=== PATIENT | male | born 1950 | race Caucasian/White ===

== ENCOUNTER 2019-07-13 11:06 | Emergency (ER) | payer MEDICARE, SELFPAY ==
[2019-07-13] MEDS: SODIUM CHLORIDE 0.9% IV 1,000 ML 999 ML (11:27)
[2019-07-13] MEDS: ONDANSETRON INJ 4 MG/2 ML VIAL (11:27)
[2019-07-13 11:28] VITALS: BP 157/95; PULSE 61; RESP 22; TEMP 36.6; O2SAT 100
--- NOTE | 2019-07-13 11:52 | ED.NAVMDI ---
HPI - Nausea/Vomiting/Diarrhea General Chief complaint: Nausea/Vomiting/Diarrhea Stated complaint: vomiting Source: patient Mode of arrival: ambulatory Limitations: no limitations History of Present Illness HPI Narrative: This 69-year-old male awoke this morning at 4:00 a.m. with left lower quadrant pain rated 7 to 8/10, constant. He had 2 small loose but formed bowel movements without improvement. No blood. At 6:00 a.m. he had several vomiting episodes which were associated with chills. Since then he has had nausea and multiple episodes of dry emesis. No fever or subsequent chills. For years he has had a daily routine of waking up about 4:00 a.m. with the similar left lower quadrant pain. After has a cup of coffee and a large bowel movement his symptoms always completely go away. He has a gx if frequent episodes of nausea and vomiting attributed to pancreatitis. Symptoms resolved after his cholecystectomy 12 years ago. He states he had a small sip of alcohol last p.m. He rarely drinks. He denies fevers chills chest pain cough shortness of breath dysuria. Related Data Home Medications Medication Instructions Recorded Confirmed finasteride 1 mg PO DAILY 07/13/19 07/13/19 verapamil 240 mg PO HS 07/13/19 07/13/19 Allergies Allergy/AdvReac Type Severity Reaction Status Date / Time No Known Allergies Allergy Unknown Verified 07/17/14 12:26 [facility] Past Medical History Medical History (Updated 07/13/19 @ 12:55 by Geoff Rosales MD) BPH (benign prostatic hyperplasia) COPD (chronic obstructive pulmonary disease) Hypertension Pancreatitis Rhinitis, chronic Surgical History Surgical History (Updated 07/13/19 @ 12:55 by Geoff Rosales MD) History of appendectomy S/P cholecystectomy Family History Family History (Updated 07/02/14 @ 07:54 by DOCTOR UNKNOWN) Mother Cerebrovascular accident Father Family history of lung cancer Other Diabetes mellitus Family history of cardiovascular disease Hypertension Social History Social History Smoking status: Former smoker Smoking end date: 03/26/04 Alcohol intake: current Exam Narrative: Exam Narrative: Laying on left side, periodic dry heaves. Skin is warm and dry. Const: General: alert Orientation/consciousness: patient oriented x3 HENMT: Mouth: Yes moist mucous membranes Neck: Neck: no lymphadenopathy Resp: Auscultation: clear to auscultation bilaterally Cardio: Rate: regular rate Rhythm: regular rhythm GI: GI Palp: Yes Soft to palpation, Yes Tenderness to palpation present (GI) (Minor tenderness LUQ ) and No Guarding due to palpation present (GI) Percussion: Yes other (Surprisingly, no increase in pain with deep palpation LLQ.) Auscultation: Hypoactive bowel sounds present : General: Yes no CVA tenderness Skin: General skin exam: normal color Rashes: no rashes Extrem: General: normal to inspection Course Vital Signs Vital signs: Vital Signs Temperature 36.6 C 07/13/19 11:28 Pulse Rate 61 07/13/19 11:28 Respiratory Rate 22 H 07/13/19 11:28 Blood Pressure 157/95 H 07/13/19 11:28 Pulse Oximetry 100 07/13/19 11:28 Temperature 36.6 C 07/13/19 11:28 Pulse Rate 61 07/13/19 11:28 Respiratory Rate 22 H 07/13/19 11:28 Blood Pressure 157/95 H 07/13/19 11:28 Pulse Oximetry 100 07/13/19 11:28 MDM - Nausea/Vomiting/Diarrhea Differential Diagnosis Differential diagnosis: Likely food poisoning, gastroenteritis and other (diverticulitis, pancreatitis, ) Lab Data Attestation: I reviewed the patient's lab results. Result diagrams: 07/13/19 12:21 07/13/19 12:21 Labs: Lab Results 07/13/19 07/13/19 07/13/19 Range/Units 12:21 12:21 12:21 WBC Pending RBC Pending Hgb Pending Hct Pending MCV Pending MCH Pending MCHC Pending RDW Pending Plt Count Pending MPV Pending Immature Gran % (Auto) Pending
[2019-07-13] MEDS: KETOROLAC 30 MG/ML VIAL (*BKC) IV PUSH (11:54)
[2019-07-13] MEDS: PROMETHAZINE HCL 25 MG/ML AMPUL IM (11:55)
[2019-07-13 12:30] LABS: Hematocrit 44.5 % (37.0-46.0); Hemoglobin 15.1 g/dL (12.4-15.3); Mean Corpuscular HGB Conc 33.9 g/dL (32.0-36.0); Mean Corpuscular Hemoglobin 30.3 pg (27.0-31.0); Mean Corpuscular Volume 89.4 fL (78.0-102.0); Mean Platelet Volume 11.9 fl (8.7-11.0); Platelet Count Result 151 K/mm3 (150-420); Red Blood Count 4.98 M/mm3 (4.70-6.10)
[2019-07-13 12:45] LABS: Alanine Aminotransferase 9 U/L (16-63); Albumin Level 3.7 g/dL (3.4-5.0); Alkaline Phosphatase 57 U/L (46-116); Anion Gap 15.2 mmol/L (7-16); Aspartate Amino Transferase 20 U/L (15-37); Bilirubin,Total 0.7 mg/dL (0.00-1.00); Blood Urea Nitrogen 20 mg/dL (7-18); Calcium 8.4 mg/dL (8.5-10.1); Carbon Dioxide 25 mmol/L (21-32); Chloride 108 mmol/L (98-108); Estimated Glomerular Filt Rate > 60; Glucose 105 mg/dL (70-99); Lipase 108 U/L (73-393); Osmolality Calculated 300 mOsm/kg (285-295); Potassium 4.2 mmol/L (3.5-5.1); Sodium 144 mmol/L (136-145); Total Protein 6.5 g/dL (6.4-8.2)
[2019-07-13 12:49] LABS: Band Neutrophils Percent 0 % (0-6); Lymphocytes Percent Manual 9 % (18-44); Monocytes Percent Manual 5 % (3-9); Neutrophils Percent Manual 85 % (46-73); Total Cells Counted 100
[2019-07-13 12:50] LABS: Basophils Percent Manual 1 % (0-1); CRP < 0.2 mg/dL (0.0-0.9); Eosinophils Percent Manual 0 % (1-6); Platelet Estimate Adequate (Adequate)
[2019-07-13 13:03] LABS: Add Urine Microscopic? YES; Appearance Urine Clear (Clear); Bilirubin Urine Negative (Negative); Blood Urine Negative (Negative); Color Urine Yellow (Yellow); Glucose Urine UA Negative (Negative); Ketones Urine 1+ (Negative); Leukocyte Esterase Ur Negative (Negative); Nitrate Urine Negative (Negative); Protein Urine Negative (Negative); Urobilinogen Urine 0.2 mg/dL (0.2-1.0); pH Urine 7.5 (5.0-8.0)
[2019-07-13 13:07] LABS: RBC Urine None seen /hpf (0-2); Squamous Epithelial Cell Urine Rare /hpf (Few); WBC Urine None seen /hpf (0-3)
[2019-07-13 13:08] LABS: Bacteria Urine None seen /hpf
--- NOTE | 2019-07-13 13:20 | ECG_ITS ---
Measurements Intervals [place] Rate: 73 P: 65 LA: 174 QRS: 73 QRSD: 97 T: 48 QT: 392 QTc: 433 Interpretive Statements SINUS RHYTHM WITH SINUS ARRHYTHMIA DELAYED PRECORDIAL R/S TRANSITION BORDERLINE ECG Electronically Signed On 07-13-2019 15:15:10 CDT by Alexi Borjas D.O.
[2019-07-13] MEDS: ONDANSETRON INJ 4 MG/2 ML VIAL IV PUSH (13:26)
[2019-07-13] MEDS: SODIUM CHLORIDE 0.9% IV 1,000 ML 999 ML IV CONT (13:27)
[2019-07-13 13:40] LABS: Troponin I < 0.02 ng/mL (0.00-0.056)
[2019-07-13 14:34] VITALS: BP 160/86
== END 2019-07-13 14:37 | disposition home or self-care (01) ==
PROVIDERS: Emergency Provider Family Medicine; PCP Internal Medicine
DX: R11.2 Nausea with vomiting, unspecified (principal); R10.32 Left lower quadrant pain
CPT/HCPCS: 36415; 80053; 81001; 83690; 84484; 85025; 86140; 93005; 96361; 96372; 96374; 96375; 96376; 99283; 99284; J1885; J2405; J2550; J7030

== ENCOUNTER 2019-10-20 14:31 | Observation (INO) | payer MEDICARE, SELFPAY ==
--- NOTE | ~2019-10-20 | CT_ITS ---
EXAMINATION: CT abdomen pelvis w con INDICATION: Left lower quadrant pain TECHNIQUE: Computed tomographic images of the abdomen and pelvis were obtained after the administrati on of 100 cc of Omnipaque 350 intravenous contrast. The dose-length product (DLP) was 641.11 mGy-cm. Automated exposure control and iterative reconstruction technique were employed. COMPARISON: 07/25/2014 FINDINGS: Minimal dependent atelectasis is present in the lung bases. The heart size is normal. There is a small sliding hiatal hernia. The gallbladder is surgically absent. There is a 7 mm cyst of the left hepatic lobe. The spleen, pancreas, and adrenal glands are normal. The kidneys are unremarkable. There is calcified atherosclerosis of the aorta and many of the other arteries. No pathologically en larged abdominal or pelvic lymph nodes are identified. There is no free intraperitoneal gas or eviden ce of bowel obstruction. Colonic diverticulosis is present without evidence of diverticulitis. There is moderate enlargement of the prostate. 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 Although prior examinations are performed without intravenous contrast, this appears to be chronic an unchanged finding. There is mild lumbar spondylosis. IMPRESSION: 1. No CT correlate for the patient's symptoms. 2. 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 Reviewed, dictated and finalized at location B. IMPRESSION: 1. No CT correlate for the patient's symptoms. 2. Short segment, chronic appearing focal dissection in the proximal celiac axi s.
--- NOTE | ~2019-10-20 | CT_ITS ---
EXAMINATION: CTA abdomen pelvis EXAM DATE: 10/21/2019 12:53 INDICATION: Acute episode of recurrent low abdominal pain. TECHNIQUE: Spiral CT of the abdomen and pelvis was performed following intravenous injection of 100 m L Omnipaque 350. Axial, coronal and sagittal images were reviewed. Maximum intensity projection 3-D reconstructions of the arteries were created by the technologist on dedicated workstation. The dos e-length product (DLP) for this examination was 420.06 mGy-cm. The exposure was tailored according t o patient size (auto mA exposure control), and iterative reconstruction (ASIR) was used as additional dose reduction technique. Comparison is made to prior examination from 10/20/2019. FINDINGS: There is some kinking of the celiac artery at the origin, and short intimal flap measuring about 7 mm in length, unchanged and likely chronic. The CR origin is severely stenotic, but does en jeaenth normally beyond. Normal aortic caliber. Short segment intimal flap, dissection in the right ext ernal iliac artery, also probably a chronic finding. Renal arteries without stenosis. The liver, spleen, adrenal glands and pancreas are unremarkable. There are cholecystectomy clips. P ortal and splenic veins are patent. Kidneys enhance symmetrically. There is no hydronephrosis. Bifu rcated left renal collecting system, but appears to have only one ureter. There is moderate prostatom egaly. The bladder is unremarkable. There is no retroperitoneal or pelvic lymphadenopathy. The appendix is not positively visualized. There is no pericecal inflammatory change to suggest appe ndicitis. There is mild scattered colonic diverticulosis. There is no adjacent inflammatory change t o suggest diverticulitis. The stomach and small bowel are unremarkable. There is expected amount of colonic stool. No free intraperitoneal gas. The heart is normal in size. There are no pericardia l or pleural effusions. The lung bases are unremarkable. The bones are unremarkable. IMPRESSION: 1. No acute intra-abdominal findings. 2. 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 3. Mild colonic diverticulosis. 4. Moderate prostatomegaly. Reviewed, dictated and finalized at location A. IMPRESSION: 1. No acute intra-abdominal findings. 2. Short segment intimal flaps, dissections in the right external iliac artery and the SMA just beyond the origin, likely chronic. 3. Mild colonic diverticulosis. 4. Moderate prostatomegaly.
[2019-10-20 14:50] VITALS: BP 167/110; PULSE 112; RESP 16; TEMP 37.1; O2SAT 98
[2019-10-20 15:51] LABS: Hematocrit 46.2 % (37.0-46.0); Hemoglobin 15.6 g/dL (12.4-15.3); Mean Corpuscular HGB Conc 33.8 g/dL (32.0-36.0); Mean Corpuscular Hemoglobin 30.4 pg (27.0-31.0); Mean Corpuscular Volume 89.9 fL (78.0-102.0); Mean Platelet Volume 11.1 fl (8.7-11.0); Platelet Count Result 207 K/mm3 (150-420); Red Blood Count 5.14 M/mm3 (4.70-6.10); Red Cell Distribution Width 13.1 % (11.6-14.4); White Blood Count 11.8 K/mm3 (4.8-10.8)
[2019-10-20] MEDS: LACTATED RINGERS 1,000 ML 500 ML IV CONT (15:51)
[2019-10-20] MEDS: ONDANSETRON INJ 4 MG/2 ML VIAL IV PUSH (15:52)
[2019-10-20 16:05] LABS: Alanine Aminotransferase 11 U/L (16-63); Albumin Level 3.8 g/dL (3.4-5.0); Alkaline Phosphatase 61 U/L (46-116); Anion Gap 12.8 mmol/L (7-16); Aspartate Amino Transferase 18 U/L (15-37); Bilirubin,Total 0.8 mg/dL (0.00-1.00); Blood Urea Nitrogen 13 mg/dL (7-18); Calcium 8.8 mg/dL (8.5-10.1); Carbon Dioxide 27 mmol/L (21-32); Chloride 104 mmol/L (98-108); Estimated CRCL calculation 53 ml/min; Estimated Glomerular Filt Rate 56; Glucose 103 mg/dL (70-99); Lipase 128 U/L (73-393); Osmolality Calculated 290 mOsm/kg (285-295); Potassium 3.8 mmol/L (3.5-5.1); Sodium 140 mmol/L (136-145); Total Protein 7.2 g/dL (6.4-8.2)
[2019-10-20 16:13] LABS: Band Neutrophils Percent 0 % (0-6); Basophils Absolute Manual 0.11 K/mm3 (0-0.1); Basophils Percent Manual 1 % (0-1); Eosinophils Percent Manual 0 % (1-6); Lymphocytes Percent Manual 17 % (18-44); Monocytes Absolute Manual 0.94 K/mm3 (0.1-0.90); Monocytes Percent Manual 8 % (3-9); Neutrophils Absolute Manual 8.73 K/mm3 (1.3-6.7); Neutrophils Percent Manual 74 % (46-73); Platelet Estimate Adequate (Adequate); Total Cells Counted 100
[2019-10-20] MEDS: MORPHINE SULFATE 4 MG/ML INJ IV PUSH (16:18)
[2019-10-20 16:23] LABS: Lactic Acid 2.9 mmol/L (0.4-2.0)
[2019-10-20] MEDS: PROMETHAZINE HCL 25 MG/ML AMPUL IM ×2 (16:25→21:01)
--- NOTE | 2019-10-20 17:34 | ED.ABDPAIN ---
HPI - Abdominal Pain General Source: patient Mode of arrival: ambulatory History of Present Illness HPI narrative: 69-year-old male has had left lower quadrant pain for the last 3 or 4 months. The pain is always there, some days the flare up will last 3 or 4 hours and other days much longer. It is sharp and severe. For the last 2 days he has been more frequent and more intense. He always has pain in the early AM. As in yesterday and today, if it becomes intense it's followed by rhinorrhea with copious PND, then coughing and gagging, then intense nausea and vomiting. These episodes have been waxing an waning today associated with several episodes of diarrhea which provided little relief. There has been no mucus or blood. He has no associated bloating. These full blown episodes are unusual, usually there's just sharp, intense LLQL pain. He denies fevers, chills, night sweats. He recently saw Dr. Cohn who recommended a colonoscopy. This has yet to be scheduled. He smokes pot daily. Sometimes, when the pain is severe, he will not smoke for several days. Related Data Home Medications Medication Instructions Recorded Confirmed finasteride 1 mg PO DAILY 07/13/19 10/20/19 verapamil 240 mg PO HS 07/13/19 10/20/19 Allergies Allergy/AdvReac Type Severity Reaction Status Date / Time No Known Allergies Allergy Unknown Verified 10/20/19 15:08 Review of Systems Constitutional: Constitutional: Reports chills Comments: off and on x 2 days. Eyes: Eyes: Denies blurry vision ENT: Denies facial pain, Reports headache(s) (chronic neck pain which corresponds to headaces. ), Reports nasal discharge (only when he's having a flare up of his abdominal pain. ) and Reports other Cardiovascular: Cardiovascular: Denies chest pain, Denies leg edema and Denies dyspnea Respiratory: Respiratory: Reports cough (When he's having abdominal pain and subsequent sinus drainag) and Denies wheezing Gastrointestinal: Gastrointestinal: Reports no additional gastrointestinal complaints Genitourinary: Comments: nocturia associated with an enlarged prostate, improved with finasteride. Musculoskeletal: Musculoskeletal: Denies joint swelling Integumentary/Breasts: Skin/Breast: Denies erythema and Denies rash Neurologic: Reports vertigo (intermitten vertigo, not bothering him today. ) Hematologic/Lymphatic: Hematologic/Lymphatic: Reports easy bleeding PMF Past Medical History Medical History BPH (benign prostatic hyperplasia) COPD (chronic obstructive pulmonary disease) Diarrhea Hypertension Marijuana abuse Nausea and vomiting in adult Pancreatitis Rhinitis, chronic Weight loss Surgical History Surgical History History of appendectomy S/P cholecystectomy Family History Family History Mother Cerebrovascular accident Father Family history of lung cancer Other Diabetes mellitus Family history of cardiovascular disease Hypertension Social History Social History (Updated 10/21/19 @ 04:52 by Geoff Rosales MD) Smoking status: Former smoker Tobacco type: cigarettes Smoking end date: 03/26/04 Alcohol intake: current Drinks per week: 2 Substance use: current Substance use type: marijuana Last use: daily Living arrangements: with family Gender identity (if verbalized by the patient): Male Sexual Orientation (if Verbalized by the Patient): Straight or Heterosexual Spiritual care concerns: No Exam Narrative: Exam Narrative: Pt. presented frequently clearing his throat and coughing followed by vomiting. I was only able to talk uninterrupted by these bouts after he recieved Zofran. Const: General: No diaphoretic Other: Initially he appeared sick, but once he stopped hacking, coughing and vomiting and his abdominal pain subsided he
[2019-10-20] MEDS: HYDROmorphone HCL 2 MG/ML VIAL 1 MG IV PUSH (18:45)
[2019-10-20 19:32] LABS: Add Urine Microscopic? YES; Appearance Urine Clear (Clear); Bilirubin Urine Negative (Negative); Blood Urine Negative (Negative); Color Urine Yellow (Yellow); Glucose Urine UA Negative (Negative); Ketones Urine Trace (Negative); Leukocyte Esterase Ur Negative (Negative); Nitrate Urine Negative (Negative); Protein Urine Negative (Negative); Urobilinogen Urine 0.2 mg/dL (0.2-1.0)
[2019-10-20 19:39] LABS: RBC Urine 0-2 /hpf (0-2); Squamous Epithelial Cell Urine None seen /hpf (Few); WBC Urine 0-3 /hpf (0-3)
[2019-10-20 19:40] LABS: Bacteria Urine None seen /hpf
--- NOTE | 2019-10-20 20:10 | PC.NURSE ---
AT 1999 CALLED REPORT TO SONIA SEYMOUR ON 2ND FLOOR. INFORMED HER OF CURRENT PT. SITUATION AND LAST SET OF VITALS AND PT. WILL BE ADMITTED OBSERVATION. PT. NOT A FALL RISK AND NOT ON ISOLATION FOR ANY REASON. WILL BE TAKING PATIENT UPSTAIRS BY WHEELCHAIR SHORTLY.
[2019-10-20 20:25] VITALS: BP 152/94; PULSE 72; RESP 16; O2SAT 98
[2019-10-20] MEDS: LACTATED RINGERS 1,000 ML 150 ML IV CONT (20:52)
--- NOTE | 2019-10-20 22:27 | PC.NURSE ---
Patient arrived to unit with significant other. Very sleepy from pain medication in ER. Oriented x4. Call light in reach. Oriented to room
[2019-10-20 22:30] VITALS: BMI 18.5
[2019-10-21] VITALS: BP 126/67; PULSE 83; RESP 16; TEMP 36.8; O2SAT 99
[2019-10-21] MEDS: ONDANSETRON INJ 4 MG/2 ML VIAL IV PUSH ×3 (00:08→16:20)
[2019-10-21] MEDS: LACTATED RINGERS 1,000 ML 150 ML IV CONT ×2 (03:16→09:55)
[2019-10-21 03:54] VITALS: BP 131/72; PULSE 80; RESP 20; TEMP 37; O2SAT 96
[2019-10-21 06:19] LABS: Basophils Absolute Auto 0.05 K/mm3 (0.00-0.10); Basophils Percent Auto 0.5 % (0.0-1.0); Eosinophils Absolute Auto 0.04 K/mm3 (0.02-0.50); Eosinophils Percent Auto 0.4 % (1.0-6.0); Hematocrit 40.8 % (37.0-46.0); Hemoglobin 13.4 g/dL (12.4-15.3); Immature Granulocyte Absolute 0.03 K/mm3 (0.00-0.00); Immature Granulocyte Percent A 0.3 % (0.0-0.0); Lymphocytes Absolute Auto 2.08 K/mm3 (1.10-4.50); Lymphocytes Percent Auto 19.9 % (18.0-42.0); Mean Corpuscular HGB Conc 32.8 g/dL (32.0-36.0); Mean Corpuscular Hemoglobin 29.9 pg (27.0-31.0); Mean Corpuscular Volume 91.1 fL (78.0-102.0); Mean Platelet Volume 11.4 fl (8.7-11.0); Monocytes Absolute Auto 0.81 K/mm3 (0.10-0.90); Monocytes Percent Auto 7.8 % (2.0-11.0); Neutrophils Absolute Auto 7.4 K/mm3 (1.7-7.2); Neutrophils Percent Auto 71.1 % (50.0-70.0); Platelet Count Result 183 K/mm3 (150-420); Red Blood Count 4.48 M/mm3 (4.70-6.10); Red Cell Distribution Width 13.4 % (11.6-14.4); White Blood Count 10.4 K/mm3 (4.8-10.8)
[2019-10-21 06:39] LABS: Blood Urea Nitrogen 15 mg/dL (7-18); Carbon Dioxide 29 mmol/L (21-32); Estimated CRCL calculation 55 ml/min; Estimated Glomerular Filt Rate > 60; Glucose 84 mg/dL (70-99)
[2019-10-21 07:40] VITALS: BP 108/75; PULSE 63; RESP 18; TEMP 37.1; O2SAT 95
[2019-10-21 09:49] LABS: Anion Gap 10.7 mmol/L (7-16); Chloride 106 mmol/L (98-108); Osmolality Calculated 293 mOsm/kg (285-295); Potassium 3.7 mmol/L (3.5-5.1); Sodium 142 mmol/L (136-145)
[2019-10-21 09:51] LABS: D Dimer 0.35 mg/L (0.19-0.50)
[2019-10-21 09:53] LABS: Creatine Kinase 412 U/L (39-308); Lactate Dehydrogenase 138 U/L (85-227); Troponin I < 0.02 ng/mL (0.00-0.056)
[2019-10-21 10:05] LABS: CRP < 0.2 mg/dL (0.0-0.9)
[2019-10-21 10:12] LABS: BNP 89.4 pg/mL (0-100)
--- NOTE | 2019-10-21 10:27 | PC.NURSE ---
refuses dilaudid, states makes him sick, offered nausea med, states he told us this am that this med made him very sick, we ar all a bunch of 12 year olds, yelling and refusing all meds offered at this time no change in pain from IV tylenol, states we all are stupid here, hospitalist in to speak with patient
[2019-10-21] MEDS: MORPHINE SULFATE 4 MG/ML INJ IV PUSH ×2 (10:35→16:21)
[2019-10-21] MEDS: LIDOCAINE 5% PATCH 3 PATCH TRANSDERM (10:43)
--- NOTE | 2019-10-21 10:46 | PC.NURSE ---
Morphine, Zofran and x1 lidocane patch to left lower quadrant for pain, continues to be angry and compalint about all care provided
--- NOTE | 2019-10-21 11:32 | PC.NURSE ---
Eyes closed, sleeping, no evidence of pain, no vomiting, fluids infusing
--- NOTE | 2019-10-21 11:42 | PC.NURSE ---
Patient agreeable to further testing with CT Angiogram and agreeable to new IV start for test
[2019-10-21 12:00] VITALS: RESP 18
--- NOTE | 2019-10-21 12:32 | PC.NURSE ---
To imaging via wheel chair
--- NOTE | 2019-10-21 13:00 | PC.NURSE ---
Returned from imaging, to bed, fluids continued, no vomiting, pain minimal at this time
--- NOTE | 2019-10-21 14:04 | PC.NURSE ---
Hospitalist talking to patient regarding test results
--- NOTE | 2019-10-21 15:03 | PM.IMHP ---
H&P: HPI History of Present Illness Chief complaint: abd pain Narrative: Earl Walls is a 69 year old male admitted yesterday with acute dehydration, sharp and severe left lower quadrant abdominal pain, Nausea & vomiting . His WBC 11.8, no fevers, Lactic Acid 2.9, LFTs and Bili all WNL, Lipase 128, and clear UA wnl. Hgb/Hct 15.6/46.2,given IVFs. CT scan showed moderate enlargement of his prostate as well as a short segment of focal dissection in the proximal aspect of the celiac axis. Earl has had left lower quadrant pain for the last 3 or 4 months. The pain is always there, some days the flare up will last 3 or 4 hours and other days much longer. It is sharp and severe. For the last 2 days he has been more frequent and more intense. He always has pain in the early AM. As in yesterday and today, if it becomes intense it's followed by rhinorrhea with copious PND, then coughing and gagging, then intense nausea and vomiting. He denies fevers, chills, night sweats. These episodes have been waxing an waning today associated with several episodes of diarrhea which provided little relief. There has been no mucus or blood. He has no associated bloating. These full blown episodes are unusual, usually there's just sharp, intense LLQL pain. He recently saw Dr. Cohn who recommended an EGD and a colonoscopy. This has yet to be scheduled or completed. He smokes pot daily. Sometimes, when the pain is severe, he will not smoke for several days. The patient came to the ED on July 19, 2019 for similar complaints. He was having nausea and vomiting and lower left quadrant pain. He was given promethazine, the patient was taking Nexium at home without relief. In June he had been awoken up from the pain around 4:00 a.m. his left lower quadrant pain at that time was constant and rated at 8/10. He then had 2 loose but formed small stools. He seems to improve after he has gas or stools. But then again the pain returned around 6:00 a.m., with vomiting nausea and chills. It seems that he has been waking up for years around 4:00 a.m. due to this pain. He usually has a cup of coffee and a bowel movement and his symptoms go away. He was also taking verapamil 240 mg at night at that time as well. According to the office note from GI physician Dr. Hollingsworth dated October 14, 2019, the patient has noted a 10 lb weight loss due to his persistent nausea vomiting diarrhea after eating. The physician recommended a colonoscopy and EGD with biopsies, consider random colon biopsy In the ED yesterday, the vomiting stopped and abdominal pain subsided after Zofran 4 mg, morphine 4 mg and promethazine 25 mg. After approximately 90 minutes he developed recurrent pain, that was not controlled by dilaudid. He does take verapamil 240 mg right before bedtime at night. Perhaps this drops his blood pressure too much, in the evening hours when his BP is already lower at rest, paired with his abdominal vascular defects - may lead to having some intermittent bowel ischemia. Possible diagosis includes Irritable Bowel Syndrome, or IBS, or Chronic ischemic colitis. Possibly related to cannibis hyperemesis syndrome. His D-dimer was normal and not elevated, his LDH was normal at 138 , total CK was elevated at 412 with a normal CK-MB and a normal troponin level x2. CRP in June and now <0.02. Earl is not nauseated or vomiting or having diarrhea this morning. He does have severe and significant left lower quadrant pain. The pain was resolved after receiving 1 g of IV Tylenol, applying lidocaine patch to his left lower quadrant and receiving 4 mg of IV morphine p.r.n. The patient is tolerating clears and ice chips well with no nausea or vomiting. Will continue clear liquid diet. The patient underwent a CT angio scan of his abdomen and pelvis showed: there is some kind of kinking of the celiac artery at the origin with a short intimal flap measuring about 7 mm in length, unchanged from the
--- NOTE | 2019-10-21 15:20 | PC.NURSE ---
Belkis Acosta from intake called and information given, face sheet faxed and will call with room assignment when there is one available, no time limit given
[2019-10-21 15:34] VITALS: BP 140/90; PULSE 65; RESP 18; TEMP 36.7; O2SAT 95
--- NOTE | 2019-10-21 16:26 | PC.NURSE ---
Pain returning, tolerating ice chips, morphine and zofran given
--- NOTE | 2019-10-21 18:48 | PC.NURSE ---
Awaiting bed at [place], resting quietly, no evidence of pain at this time, fluids infusing and no vomiting this shift
--- NOTE | 2019-10-21 18:50 | PC.NURSE ---
Bed assignment recieved and number to call report recieved
--- NOTE | 2019-10-21 19:01 | PM.DS ---
DS: Admitting Diagnosis Admitting Diagnosis Admitting Diagnosis: Abnormal weight loss DS: Discharge Diagnosis Discharge Diagnosis (1) Weight loss: Code(s): R63.4 - Abnormal weight loss Status: Acute Assessment and Plan: office note from GI physician Dr. Hollingsworth dated October 14, 2019, the patient has noted a 10 lb weight loss due to his persistent nausea vomiting diarrhea after eating. noted weight loss despite marijuana use The physician recommended a colonoscopy and EGD with biopsies, consider random colon biopsy (2) Nausea and vomiting in adult: Code(s): R11.2 - Nausea with vomiting, unspecified Status: Acute Assessment and Plan: resolved at this time In the ED yesterday, the vomiting stopped and abdominal pain subsided after Zofran 4 mg, morphine 4 mg and promethazine 25 mg. Possible diagosis includes Irritable Bowel Syndrome, or IBS, or Chronic ischemic colitis. Possibly related to cannibis hyperemesis syndrome. tolerating ice chips and clears at this time continue IV fluids awaiting transfer to [place] (3) Diarrhea: Code(s): R19.7 - Diarrhea, unspecified Status: Acute Assessment and Plan: resolved at this time none since admission to the hospital stool cultures ordered and occult blood ordered- no stool to test at this time yet (4) Marijuana abuse: Code(s): F12.10 - Cannabis abuse, uncomplicated Status: Acute Assessment and Plan: smokes pot daily. Sometimes, when the pain is severe, he will not smoke for several days. Possibly related to cannibis hyperemesis syndrome. (5) Acute dehydration: Code(s): E86.0 - Dehydration Status: Acute Assessment and Plan: admitted yesterday with acute dehydration due to pain, Nausea & vomiting . WBC 11.8, no fevers, Lactic Acid 2.9, Hgb/Hct 15.6/46.2, given IVFs. coughing and gagging, then intense nausea and vomiting episodes given promethazine, the patient was taking Nexium at home without relief office note from GI physician Dr. Hollingsworth dated October 14, 2019, the patient has noted a 10 lb weight loss due to his persistent nausea vomiting diarrhea after eating. The physician recommended a colonoscopy and EGD with biopsies, consider random colon biopsy In the ED yesterday, the vomiting stopped and abdominal pain subsided after Zofran 4 mg, morphine 4 mg and promethazine 25 mg. Possible diagosis includes Irritable Bowel Syndrome, or IBS, or Chronic ischemic colitis. Possibly related to cannibis hyperemesis syndrome. his D-dimer was normal and not elevated, his LDH was normal at 138 , total CK was elevated at 412 with a normal CK-MB and a normal troponin level x2. CRP in June and now <0.02. tolerating ice chips and clears at this time continue IV fluids awaiting transfer to [place] (6) Abdominal pain: Qualifiers: Abdominal location: left lower quadrant Qualified Code(s): R10.32 - Left lower quadrant pain Code(s): R10.9 - Unspecified abdominal pain Status: Acute Assessment and Plan: admitted yesterday with acute sharp and severe left lower quadrant abdominal pain for the last 3 or 4 months. episodes of sharp and severe. For the last 2 days he has been more frequent and more intense. He always has pain in the early AM. recommended an EGD and a colonoscopy. in ED given promethazine, in the past tried Nexium at home without relief. yesterday receive Zofran 4 mg, morphine 4 mg and promethazine 25 mg. his daily marijuana may have been treating his a controlling his abdominal discomfort for years without him knowing it. 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
--- NOTE | 2019-10-21 19:04 | PC.NURSE ---
Report given to Bibi at [email or web address] [id number]
[2019-10-21] MEDS: PROMETHAZINE HCL 25 MG TABLET PO (19:41)
[2019-10-21] MEDS: LACTATED RINGERS 1,000 ML 75 ML IV CONT (19:44)
--- NOTE | 2019-10-21 19:55 | PC.NURSE ---
Patient left with [facility] for transfer to [facility]. Belongings sent with patient.
--- NOTE | 2019-10-21 19:55 | PC.NURSE ---
Running bag of LR sent with EMS when patient transfered.
--- NOTE | 2019-10-22 00:39 | PM.EVENT ---
Event Note Event Note Event Note: For 10/21/2019: I reviewed the chart and examined the patient. I discussed the patient's care with A Jamey THORNE and agree with her assessment and plan.
== END 2019-10-21 19:55 | disposition short-term general hospital (02) ==
LOC: CHSED 19:29 → CHS2ND 19:59
PROVIDERS: Nurse Practitioner; Admitting Provider Family Medicine; Emergency Provider Family Medicine; PCP Internal Medicine; Visit Provider Family Medicine
DX: R10.32 Left lower quadrant pain (principal); E86.0 Dehydration; K55.1 Chronic vascular disorders of intestine; R11.2 Nausea with vomiting, unspecified; R19.7 Diarrhea, unspecified; R63.4 Abnormal weight loss; J31.0 Chronic rhinitis; J44.9 Chronic obstructive pulmonary disease, unspecified; I10 Essential (primary) hypertension; N40.0 Benign prostatic hyperplasia without lower urinary tract symptoms; F12.90 Cannabis use, unspecified, uncomplicated
CPT/HCPCS: 36415; 74174; 74177; 80048; 80053; 81001; 82550; 82553; 83605; 83615; 83690; 83735; 83880; 84100; 84484; 85025; 85380; 86140; 87086; 87088; 96361; 96372; 96374; 96375; 96376; 99285; A9270; G0378; J0131; J1170; J2270; J2405; J2550; J7120; Q9965

== ENCOUNTER 2020-01-10 00:36 | Outpatient (CLI) | payer MEDICARE, SELFPAY ==
[2020-01-10 17:37] LABS: SARS-CoV-2 RNA PCR Negative
== END 2020-01-10 00:37 | disposition home or self-care (01) ==
LOC: ANHCOVIDDT 00:36
PROVIDERS: PCP Internal Medicine; Visit Provider Internal Medicine Gastroenterology
DX: Z01.812 Encounter for preprocedural laboratory examination (principal); Z20.828 Contact with and (suspected) exposure to other viral communicable diseases
CPT/HCPCS: 87635; C9803; U0003

== ENCOUNTER 2020-01-13 00:27 | Day surgery (SDC) | payer MEDICARE, SELFPAY ==
[2020-01-07 09:12] VITALS: BMI 22.4
[2020-01-13] VITALS (12 sets, daily range): BP systolic 125–169; BP diastolic 82–101; PULSE 52–78; RESP 18–29; TEMP 36.6; O2SAT 93–100; BMI 23.6
--- NOTE | ~2020-01-13 | XR_ITS ---
XR abdomen/kub 1V 01/13/2020 11:40 Indication: Left lower quadrant abdominal pain Procedure: KUB Comparison: 09/08/2008 Findings: Bowel gas pattern is nonobstructive. There are cholecystectomy clips. No renal/ureteral sto marek are identified. No acute osseous abnormality. No osteolytic or osteoblastic lesions. Lung bases a re unremarkable. Impression: 1: No acute abdominal abnormality. Reviewed, dictated and finalized at location B. Impression: 1: No acute abdominal abnormality.
--- NOTE | 2020-01-13 08:49 | WPDANESEPPF ---
Anes - Initial Pre Proc Eval Procedure: Operation Date: 01/13/20 10:00 Proposed Procedures p Esophagogastroduodenoscopy & Colonoscopy - Fuad Galan MD Date/Time: 01/13/20 08:49 Surgeon: Fuad Galan MD Pre Op Diagnosis: abd pain, n/v, diarrhea Patient Data Age: 69 Gender: M Height: 6 ft Weight: 78.8 kg Last Vital Signs Temp 36.6 C 01/13/20 08:39 Pulse 78 01/13/20 08:39 Resp 20 01/13/20 08:39 BP 136/98 H 01/13/20 08:39 Pulse Ox 98 01/13/20 08:39 Allergies Allergy/AdvReac Type Severity Reaction Status Date / Time No Known Allergies Allergy Unknown Verified 01/13/20 08:35 Home Medications Medication Instructions Recorded Confirmed Type finasteride 1 mg PO DAILY 07/13/19 01/07/20 History amitriptyline 25 mg PO HS 01/07/20 01/07/20 History esomeprazole magnesium [Nexium] 20 mg PO DAILY 01/07/20 01/07/20 History metoprolol succinate 25 mg PO DAILY 01/07/20 01/07/20 History Patient hx anesthesia problems: none Family hx anesthesia problems: none PMFSH Past Medical History Medical History BPH (benign prostatic hyperplasia) COPD (chronic obstructive pulmonary disease) Diarrhea Hypertension Marijuana abuse Nausea and vomiting in adult Pancreatitis Rhinitis, chronic Weight loss Surgical History Surgical History History of appendectomy S/P cholecystectomy Family History Family History Mother Cerebrovascular accident Father Family history of lung cancer Other Diabetes mellitus Family history of cardiovascular disease Hypertension Social History Social History Smoking packs per day: 3 Smoking cigarettes per day: 60.0 Years smoked: 10 Smoking pack-years: 30.00 Smoking status: Former smoker Tobacco type: cigarettes Smoking end date: 03/26/04 Alcohol intake: current Drinks per week: 2 Substance use: current Substance use type: marijuana Last use: 01/07/2020 Living arrangements: with family Gender identity (if verbalized by the patient): Male Spiritual care concerns: No Anes - Eval Final PreProcedure Day of Procedure 01/13/20 08:49 Patient weight: normal Heart: regular rate and rhythm Lungs: clear to auscultation Airway: Mallampati scale class II and other (partials) Neurological: alert and oriented Last oral intake: 2 hours (coffe with sugar 16oz at 0630) ASA classification: III Emergent: no Anesthetic plan: proceed Anesthesia type and monitoring: general GIVS and standard monitoring Informed Consent: The patient's anesthetic plan and its attendant risks and benefits were discussed with the patient/family/POA. Questions were solicited and answers provided to the satisfaction of the patient/family/POA.
[2020-01-13] MEDS: LACTATED RINGERS 1,000 ML 150 ML IV CONT (08:57)
--- NOTE | 2020-01-13 09:51 | PM.HPGS ---
History of Present Illness History of Present Illness Consent: Risks, benefits, and alternatives have been discussed and questions answered. Patient agrees to proceed with procedure. Chief complaint: abd pain, n/v, diarrhea Narrative: Earl Walls is a 69 year old male with abdominal pain and diarrhea, 12 years ago had egd and colonoscopy, lately he is feeling better after started using amitriptyline. Review of Systems Constitutional: Constitutional: Denies headache(s) and Denies weakness Eyes: Eyes: Denies blurry vision ENT: Reports Normal hearing present, Denies headache(s) and Denies neck pain Cardiovascular: Cardiovascular: Denies chest pain and Denies dyspnea Respiratory: Respiratory: Denies dyspnea Gastrointestinal: Gastrointestinal: Reports no additional gastrointestinal complaints Genitourinary: Genitourinary: Denies dysuria Musculoskeletal: Musculoskeletal: Denies neck pain Integumentary/Breasts: Skin/Breast: Denies dry skin Neurologic: Reports Normal hearing present, Denies headache(s) and Denies weakness Psychiatric: Psychiatric: Denies anxiety Endocrine: Endocrine: Denies change in body appearance Hematologic/Lymphatic: Hematologic/Lymphatic: Denies easy bleeding Allergic/Immunologic: Allergic/Immunologic: Denies urticaria PMFSH Past Medical History Medical History (Updated 01/13/20 @ 09:52 by Fuad Galan MD) BPH (benign prostatic hyperplasia) Colon cancer screening COPD (chronic obstructive pulmonary disease) Diarrhea Hypertension Marijuana abuse Nausea and vomiting in adult Pancreatitis Rhinitis, chronic Weight loss Surgical History Surgical History History of appendectomy S/P cholecystectomy Family History Family History Mother Cerebrovascular accident Father Family history of lung cancer Other Diabetes mellitus Family history of cardiovascular disease Hypertension Social History Social History Smoking packs per day: 3 Smoking cigarettes per day: 60.0 Years smoked: 10 Smoking pack-years: 30.00 Smoking status: Former smoker Tobacco type: cigarettes Smoking end date: 03/26/04 Alcohol intake: current Drinks per week: 2 Substance use: current Substance use type: marijuana Last use: 01/07/2020 Living arrangements: with family Gender identity (if verbalized by the patient): Male Spiritual care concerns: No Meds Home Medications and Allergies Home Medications Medication Instructions Recorded Confirmed Type finasteride 1 mg PO DAILY 07/13/19 01/07/20 History amitriptyline 25 mg PO HS 01/07/20 01/07/20 History esomeprazole magnesium [Nexium] 20 mg PO DAILY 01/07/20 01/07/20 History metoprolol succinate 25 mg PO DAILY 01/07/20 01/07/20 History Allergies Allergy/AdvReac Type Severity Reaction Status Date / Time No Known Allergies Allergy Unknown Verified 01/13/20 08:35 Vital Signs Vital Signs - 24 hr 01/13/20 08:39 Temperature 97.8 F Pulse Rate 78 Respiratory Rate 20 Blood Pressure 136/98 H Pulse Oximetry 98 Exam Const: General: comfortable and no acute distress HENMT: General nose exam: Normal nares present Eyes: General: appearance normal, both eyes and all related structures Neck: Neck: no JVD Resp: Auscultation: clear to auscultation bilaterally Cardio: Rate: regular rate Rhythm: regular rhythm GI: Inspection: non-distended GI Palp: Yes Soft to palpation Skin: General skin exam: normal color Neuro: General: gait normal Speech: normal speech Extrem: General: normal to inspection Psych: Mental Status: mental status grossly normal Assessment and Plan Assessment and plan (1) Abdominal pain: Qualifiers: Abdominal location: left lower quadrant Qualified Code(s): R10.32 - Left lower quadrant pain
[2020-01-13] MEDS: KETOROLAC 30 MG/ML VIAL (*BKC) IV PUSH (11:14)
[2020-01-13] MEDS: ONDANSETRON INJ 4 MG/2 ML VIAL IV PUSH (11:27)
[2020-01-13] MEDS: fentaNYL CITRATE INJ (*CRX) 100 MCG/2 ML VIAL 50 MCG IV PUSH (11:30)
[2020-01-13] MEDS: METOCLOPRAMIDE HCL INJ 10 MG/2 ML VIAL IV PUSH (12:16)
--- NOTE | 2020-01-13 13:10 | SUR.PHASEII ---
Pt complained of left lower quadrant abdominal pain 7/10 and nausea postoperatively upon awakening. Pt states that he has a history of abdominal pain and nausea and has been to the hospital for these symptoms [address] Cohn notified and in to see the pt in post op several times. New orders recieved for Toradol,Zofran,Dicyclomine and KUB. Unable to give Dicyclomine due to nausea. Reglan IV also given as ordered by Dr. Cohn. Pt states relief after pain medicine and Reglan given states abdominal pain 2/10. Pt's friend at bedside. 1240 Pt states he feels better and is ready to go home. Discharge instructions given to pt. Instructed pt to come back to the ER if sypmtoms continue or worsen.
== END 2020-01-13 12:50 | disposition home or self-care (01) ==
PROVIDERS: PCP Internal Medicine; Visit Provider Internal Medicine Gastroenterology
PROC: 0DJ08ZZ Inspection of Upper Intestinal Tract, Via Natural or Artificial Opening Endoscopic (ICD-10-PCS; CPT 43235; principal; 2020-01-13 10:00)
DX: Z12.11 Encounter for screening for malignant neoplasm of colon (principal); K64.8 Other hemorrhoids; K44.9 Diaphragmatic hernia without obstruction or gangrene; R10.84 Generalized abdominal pain; R11.0 Nausea; I10 Essential (primary) hypertension; J44.9 Chronic obstructive pulmonary disease, unspecified; N40.0 Benign prostatic hyperplasia without lower urinary tract symptoms; Z87.891 Personal history of nicotine dependence; F12.90 Cannabis use, unspecified, uncomplicated
CPT/HCPCS: 45380; 43239; 74018; 88305; J1885; J2405; J2704; J2765; J3010; J7120

== ENCOUNTER 2020-08-08 14:54 | Emergency (ER) | payer MEDICARE, SELFPAY ==
[2020-08-08 15:30] VITALS: BP 160/108; PULSE 101; RESP 20; TEMP 37; O2SAT 99
[2020-08-08] MEDS: ONDANSETRON HCL ODT 4 MG TABLET (16:01)
[2020-08-08] MEDS: SUMAtriptan SUCCINATE 6 MG/0.5 ML VIAL SUB-Q (16:04)
[2020-08-08] MEDS: KETOROLAC (*BKC) 60 MG/2 ML VIAL IM (17:08)
[2020-08-08] MEDS: PROCHLORPERAZINE EDISYLATE 10 MG/2 ML VIAL IM (17:09)
[2020-08-08 17:40] LABS: Basophils Absolute Auto 0.02 K/mm3 (0.00-0.10); Basophils Percent Auto 0.2 % (0.0-1.0); Eosinophils Absolute Auto 0.01 K/mm3 (0.02-0.50); Eosinophils Percent Auto 0.1 % (1.0-6.0); Hematocrit 46.7 % (37.0-46.0); Hemoglobin 15.7 g/dL (12.4-15.3); Immature Granulocyte Absolute 0.02 K/mm3 (0.00-0.00); Immature Granulocyte Percent A 0.2 % (0.0-0.0); Lymphocytes Absolute Auto 0.49 K/mm3 (1.10-4.50); Lymphocytes Percent Auto 4.5 % (18.0-42.0); Mean Corpuscular HGB Conc 33.6 g/dL (32.0-36.0); Mean Corpuscular Hemoglobin 29.8 pg (27.0-31.0); Mean Corpuscular Volume 88.8 fL (78.0-102.0); Monocytes Absolute Auto 0.64 K/mm3 (0.10-0.90); Monocytes Percent Auto 5.8 % (2.0-11.0); Neutrophils Absolute Auto 9.8 K/mm3 (1.7-7.2); Neutrophils Percent Auto 89.2 % (50.0-70.0); Platelet Count Result 171 K/mm3 (150-420); Red Blood Count 5.26 M/mm3 (4.70-6.10); Red Cell Distribution Width 12.7 % (11.6-14.4)
[2020-08-08 17:55] LABS: Alanine Aminotransferase 16 U/L (16-63); Albumin Level 3.7 g/dL (3.4-5.0); Alkaline Phosphatase 65 U/L (46-116); Amylase 69 U/L (25-115); Anion Gap 9 mmol/L (8-16); Aspartate Amino Transferase 21 U/L (15-37); Bilirubin,Total 0.7 mg/dL (0.00-1.00); Blood Urea Nitrogen 16 mg/dL (7-18); Calcium 8.8 mg/dL (8.5-10.1); Carbon Dioxide 26 mmol/L (21-32); Chloride 102 mmol/L (98-108); Estimated CRCL calculation 56 ml/min; Estimated Glomerular Filt Rate 60; Glucose 110 mg/dL (70-99); Lipase 80 U/L (73-393); Osmolality Calculated 286 mOsm/kg (285-295); Sodium 137 mmol/L (136-145); Total Protein 7.2 g/dL (6.4-8.2)
[2020-08-08 17:58] LABS: Lactic Acid Reflex 0.8 mmol/L (0.4-2.0)
--- NOTE | 2020-08-08 18:32 | ED.ABDPAIN ---
HPI - Abdominal Pain General Chief Complaint: Abdominal Pain Stated Complaint: Abd pain,nausea Time Seen by Provider: 08/08/20 15:40 Source: patient Mode of arrival: ambulatory Limitations: no limitations History of Present Illness HPI narrative: Patient comse in complaining of moderately severe abdominal pain which he says has gone on today for several hours. Pain is sharp, stabbing in mid abdomen, ongoing, not relieved by medications taken at home. He says he has been diagnosed with abdominal migraine. He says this is one of his typical attacks, but more severe than his normal attacks. MD elicited complaint: abdominal pain Pertinent past history: other (abdominal migraine) Onset (ago): hour(s) Pain Consistency: constant Location: epigastric (mid abdomen) Severity: similar to previous episodes Quality: stabbing Migration to: periumbilical Exacerbating factors: eating Relieving factors: nothing Associated symptoms: denies other symptoms Treatments prior to arrival: NSAIDs Related Data Home Medications Medication Instructions Recorded Confirmed finasteride 1 mg PO DAILY 07/13/19 08/08/20 amitriptyline 25 mg PO HS 01/07/20 08/08/20 verapamil 120 mg PO HS 08/08/20 08/08/20 Allergies Allergy/AdvReac Type Severity Reaction Status Date / Time No Known Allergies Allergy Unknown Verified 08/08/20 15:46 Review of Systems Constitutional: Constitutional: Reports no additional constitutional complaints Eyes: Eyes: Reports no additional eye complaints ENT: Reports system reviewed and no additional complaints, except as documented Cardiovascular: Cardiovascular: Reports no additional cardiovascular complaints Respiratory: Respiratory: Reports no additional respiratory complaints Gastrointestinal: Gastrointestinal: Reports no additional gastrointestinal complaints Genitourinary: Genitourinary: Reports no additional male genitourinary complaints Musculoskeletal: Musculoskeletal: Reports no additional musculoskeletal complaints Integumentary/Breasts: Skin/Breast: Reports system reviewed and no additional complaints, except as docu Neurologic: Reports system reviewed and no additional complaints, except as documented Psychiatric: Psychiatric: Reports no additional psychiatric complaints Endocrine: Endocrine: Reports no additional endocrine complaints, Reports as per HPI, Reports excessive sweating, Reports fatigue, Reports polydipsia and Reports polyuria Hematologic/Lymphatic: Hematologic/Lymphatic: Reports no additional hematologic/lymphatic complaints Allergic/Immunologic: Allergic/Immunologic: Reports no additional allergic/immunologic complaints PMFSH Past Medical History Medical History BPH (benign prostatic hyperplasia) Colon cancer screening COPD (chronic obstructive pulmonary disease) Diarrhea Hypertension Marijuana abuse Nausea and vomiting in adult Pancreatitis Rhinitis, chronic Weight loss Surgical History Surgical History History of appendectomy S/P cholecystectomy Family History Family History Mother Cerebrovascular accident Father Family history of lung cancer Other Diabetes mellitus Family history of cardiovascular disease Hypertension Social History Social History Smoking packs per day: 3 Smoking cigarettes per day: 60.0 Years smoked: 10 Smoking pack-years: 30.00 Smoking status: Former smoker Tobacco type: cigarettes Smoking end date: 03/26/04 Alcohol intake: current Drinks per week: 2 Substance use: current Substance use type: marijuana Last use: 01/07/2020 Gender identity (if verbalized by the patient): Male Spiritual care concerns: No Exam Const: General: alert Orientation/consciousness: patient oriented x3 HENMT: Head: normal to ins
[2020-08-08 18:42] VITALS: BP 164/112
== END 2020-08-08 18:42 | disposition home or self-care (01) ==
PROVIDERS: Emergency Provider Emergency Medicine; PCP Internal Medicine
DX: G43.D1 Abdominal migraine, intractable (principal)
CPT/HCPCS: 36415; 80053; 82150; 83605; 83690; 85025; 96372; 96374; 99283; 99284; A9270; J0780; J1885; J3030

== ENCOUNTER 2021-04-18 13:54 | Outpatient (CLI) | payer MEDICARE, SELFPAY ==
[2021-04-18 14:37] LABS: SARS-CoV-2 Ag Negative (Negative)
[2021-04-18 15:14] LABS: Influenza Control Valid (Valid)
[2021-04-19 19:07] LABS: SARS-CoV-2 RNA PCR Negative
== END 2021-04-18 13:55 | disposition home or self-care (01) ==
LOC: CHSLAB 13:59
PROVIDERS: PCP Internal Medicine; Visit Provider Internal Medicine
DX: R05.9 Cough, unspecified (principal); R50.9 Fever, unspecified; Z20.822 Contact with and (suspected) exposure to COVID-19
CPT/HCPCS: 87426; 87804; C9803; U0003; U0005

== ENCOUNTER 2021-11-02 13:54 | Outpatient (CLI) | payer MEDICARE, SELFPAY ==
[2021-11-02 14:06] LABS: Basophils Absolute Auto 0.05 K/mm3 (0.00-0.10); Basophils Percent Auto 0.6 % (0.0-1.0); Eosinophils Absolute Auto 0.19 K/mm3 (0.02-0.50); Eosinophils Percent Auto 2.3 % (1.0-6.0); Hematocrit 45.1 % (37.0-46.0); Hemoglobin 15.1 g/dL (12.4-15.3); Immature Granulocyte Absolute 0.03 K/mm3 (0.00-0.00); Immature Granulocyte Percent A 0.4 % (0.0-0.0); Lymphocytes Absolute Auto 2.31 K/mm3 (1.10-4.50); Lymphocytes Percent Auto 28.1 % (18.0-42.0); Mean Corpuscular HGB Conc 33.5 g/dL (32.0-36.0); Mean Corpuscular Hemoglobin 29.9 pg (27.0-31.0); Mean Corpuscular Volume 89.3 fL (78.0-102.0); Mean Platelet Volume 10.3 fl (8.7-11.0); Monocytes Absolute Auto 1.01 K/mm3 (0.10-0.90); Monocytes Percent Auto 12.3 % (2.0-11.0); Neutrophils Absolute Auto 4.6 K/mm3 (1.7-7.2); Neutrophils Percent Auto 56.3 % (50.0-70.0); Platelet Count Result 190 K/mm3 (150-420); Red Blood Count 5.05 M/mm3 (4.70-6.10); Red Cell Distribution Width 13.3 % (11.6-14.4); White Blood Count 8.2 K/mm3 (4.8-10.8)
[2021-11-02 14:36] LABS: Alanine Aminotransferase 41 U/L (16-63); Albumin Level 3.9 g/dL (3.4-5.0); Alkaline Phosphatase 65 U/L (46-116); Amylase 69 U/L (25-115); Anion Gap 10 mmol/L (8-16); Aspartate Amino Transferase 39 U/L (15-37); Bilirubin,Total 0.7 mg/dL (0.00-1.00); Blood Urea Nitrogen 12 mg/dL (7-18); CRP < 0.5 mg/dL (0.0-0.9); Calcium 8.5 mg/dL (8.5-10.1); Carbon Dioxide 27 mmol/L (21-32); Chloride 102 mmol/L (98-108); Estimated Glomerular Filt Rate > 60; Glucose 78 mg/dL (70-99); Lipase 96 U/L (73-393); Magnesium 1.9 mg/dL (1.8-2.4); Osmolality Calculated 286 mOsm/kg (285-295); Potassium 3.6 mmol/L (3.5-5.1); Sodium 139 mmol/L (136-145); Total Protein 6.8 g/dL (6.4-8.2)
== END 2021-11-02 13:55 | disposition home or self-care (01) ==
LOC: CHSLAB 13:56
PROVIDERS: PCP Internal Medicine; Visit Provider Internal Medicine
DX: R19.7 Diarrhea, unspecified (principal); E86.0 Dehydration
CPT/HCPCS: 36415; 80053; 82150; 83690; 83735; 85025; 86140

== ENCOUNTER 2023-01-05 11:40 | Outpatient (CLI) | payer MEDICARE, SELFPAY ==
--- NOTE | ~2023-01-05 | CT_ITS ---
EXAMINATION: CTA chest PE protocol DATE: 01/05/2023 15:08 INDICATION: Hypotension, elevated d-dimer TECHNIQUE: Computed tomography angiography (CTA) of the chest was performed with 100 mL Omnipaque-350 intravenous contrast timed to evaluate the pulmonary arteries. Coronal maximum intensity projection 3D-reconstructions were created by the technologist. The dose-length product (DLP) was 376.08 mGy-cm. Automated exposure control and iterative reconstruction technique were employed. COMPARISON: None. FINDINGS: The pulmonary arteries are well-opacified. No pulmonary embolism is identified. No pleural effusion or pneumothorax. There is mild dependent atelectasis. Lungs are free of focal airspace opaci ties. No pathologically enlarged thoracic lymph nodes are identified. The heart size is normal. Sharp es of cholecystectomy are noted. There is moderate thoracic spondylosis. There is severe lower cervic al spondylosis. IMPRESSION: 1. No pulmonary embolism or acute cardiopulmonary abnormality. Reviewed, dictated and finalized at location B.
[2023-01-05 11:59] LABS: Basophils Percent Auto 1.4 % (0.0-1.0); Eosinophils Absolute Auto 0.22 K/mm3 (0.02-0.50); Hematocrit 43.7 % (37.0-46.0); Hemoglobin 14.8 g/dL (12.4-15.3); Immature Granulocyte Absolute 0.01 K/mm3 (0.00-0.00); Immature Granulocyte Percent A 0.1 % (0.0-0.0); Lymphocytes Absolute Auto 2.04 K/mm3 (1.10-4.50); Lymphocytes Percent Auto 28.1 % (18.0-42.0); Mean Corpuscular HGB Conc 33.9 g/dL (32.0-36.0); Mean Corpuscular Hemoglobin 30.9 pg (27.0-31.0); Mean Corpuscular Volume 91.2 fL (78.0-102.0); Monocytes Absolute Auto 0.64 K/mm3 (0.10-0.90); Monocytes Percent Auto 8.8 % (2.0-11.0); Neutrophils Absolute Auto 4.2 K/mm3 (1.7-7.2); Neutrophils Percent Auto 58.6 % (50.0-70.0); Platelet Count Result 164 K/mm3 (150-420); Red Blood Count 4.79 M/mm3 (4.70-6.10); Red Cell Distribution Width 12.8 % (11.6-14.4); White Blood Count 7.3 K/mm3 (4.8-10.8)
--- NOTE | 2023-01-05 11:59 | ECG_ITS ---
Measurements Intervals [place] Rate: 62 P: 54 LA: 193 QRS: 36 QRSD: 88 T: 44 QT: 410 QTc: 419 Interpretive Statements SINUS RHYTHM NONSPECIFIC ST ABNORMALITY ABNORMAL ECG COMPARED TO ECG 07/13/2019 14:12:49 NO SIGNIFICANT CHANGES Electronically Signed On 01-05-2023 14:10:22 CDT by Young Han M.D.
[2023-01-05 12:23] LABS: Alanine Aminotransferase 11 U/L (16-63); Albumin Level 3.7 g/dL (3.4-5.0); Alkaline Phosphatase 59 U/L (46-116); Anion Gap 6 mmol/L (8-16); Aspartate Amino Transferase 17 U/L (15-37); Bilirubin,Total 0.9 mg/dL (0.00-1.00); Blood Urea Nitrogen 18 mg/dL (7-18); Calcium 8.8 mg/dL (8.5-10.1); Carbon Dioxide 27 mmol/L (21-32); Chloride 102 mmol/L (98-108); Creatine Kinase 94 U/L (39-308); Estimated Glomerular Filt Rate 47; Glucose 84 mg/dL (70-99); Osmolality Calculated 280 mOsm/kg (285-295); Potassium 4.7 mmol/L (3.5-5.1); Sodium 135 mmol/L (136-145); Total Protein 6.6 g/dL (6.4-8.2); Troponin I 5.8 ng/L (0.00-60.4)
[2023-01-05 12:26] LABS: CRP < 0.5 mg/dL (0.0-0.9)
[2023-01-05 13:15] LABS: D Dimer 0.98 mg/L (0.19-0.50)
== END 2023-01-05 11:41 | disposition home or self-care (01) ==
PROVIDERS: PCP Internal Medicine; Visit Provider Internal Medicine
DX: I95.9 Hypotension, unspecified (principal); R55 Syncope and collapse; R79.1 Abnormal coagulation profile; R94.31 Abnormal electrocardiogram [ECG] [EKG]
CPT/HCPCS: 36415; 71275; 80053; 82550; 82553; 84484; 85025; 85380; 86140; 93005; Q9967

== ENCOUNTER 2023-01-08 07:23 | Outpatient (CLI) | payer MEDICARE, SELFPAY ==
[2023-01-08 08:06] LABS: Alanine Aminotransferase 10 U/L (16-63); Albumin Level 3.6 g/dL (3.4-5.0); Alkaline Phosphatase 61 U/L (46-116); Anion Gap 6 mmol/L (8-16); Aspartate Amino Transferase 12 U/L (15-37); Bilirubin,Total 0.5 mg/dL (0.00-1.00); Blood Urea Nitrogen 15 mg/dL (7-18); Calcium 8.5 mg/dL (8.5-10.1); Carbon Dioxide 28 mmol/L (21-32); Chloride 105 mmol/L (98-108); Estimated Glomerular Filt Rate > 60; Glucose 104 mg/dL (70-99); Osmolality Calculated 288 mOsm/kg (285-295); Potassium 4.8 mmol/L (3.5-5.1); Sodium 139 mmol/L (136-145); Total Protein 6.2 g/dL (6.4-8.2)
== END 2023-01-08 07:24 | disposition home or self-care (01) ==
LOC: CHSLAB 07:25
PROVIDERS: PCP Internal Medicine; Visit Provider Internal Medicine
DX: I10 Essential (primary) hypertension (principal)
CPT/HCPCS: 36415; 80053